=== PATIENT | male | born 1975 | race Caucasian/White ===

== ENCOUNTER → 2018-04-29 | Outpatient (CLI) | payer BC ==
[~2018-04-29] MED LIST: GADODIAMIDE 10 MMOL/20 ML ML IV ONE
== END | disposition home or self-care (01) ==
LOC: RAH 08:15
PROVIDERS: ATTEND Internal Medicine Gastroenterology
DX: R16.0 Hepatomegaly, not elsewhere classified (principal); R93.3 Abnormal findings on diagnostic imaging of other parts of digestive tract
CPT/HCPCS: 74183; A9579

== ENCOUNTER 2018-04-30 09:41 | Observation (INO) | payer BC ==
[~2018-04-30] VITALS: Ht 182.9 cm; Wt 96.2 kg
[2018-04-30] VITALS (9 sets, daily range): BP systolic 140–152; BP diastolic 76–93
[2018-04-30] MEDS ORDERED: MORPHINE SULFATE 2 MG/ML 1ML SYG IVP PRN (10:15)
[2018-04-30] MEDS ORDERED: SODIUM CHLORIDE 0.9% 1000ML 1,000 ML IV SCH (10:15)
[2018-04-30 10:41] LABS: BASOPHILS % (AUTO) 0.9 % (0.0-5.0); EOSINOPHILS % (AUTO) 2.5 % (0.0-8.0); HEMATOCRIT 41.8 % (42-54); LYMPHOCYTES % (AUTO) 20.5 % (21.0-51.0); MEAN CORPUSCULAR HEMOGLOBIN 31.9 pg (27.0-33.0); MEAN CORPUSCULAR HGB CONC 34.6 g/dL (32.0-36.0); MEAN CORPUSCULAR VOLUME 92.3 fL (79-99); MONOCYTES % (AUTO) 7.3 % (3.0-13.0); NEUTROPHILS % (AUTO) 68.8 % (40.0-77.0); NUCLEATED RED BLOOD CELLS 0.1 % (0.0-0.19); PLATELET COUNT (AUTO) 168 K/uL (130-400); RED BLOOD CELL COUNT(AUTO) 4.53 MIL/uL (4.50-6.20); RED CELL DISTRIBUTION WIDTH 13.7 % (11.0-15.5)
[2018-04-30 10:50] LABS: POTASSIUM 4.1 mmol/L (3.5-5.1)
[2018-04-30 10:54] LABS: INR 0.99 (0.85-1.15); PARTIAL THROMBOPLASTIN TIME 30.9 SEC (26.3-35.5); PROTHROMBIN TIME 10.4 SEC (9.6-11.6)
[2018-04-30 10:55] LABS: ALBUMIN 3.9 g/dL (3.5-5.0); BILIRUBIN,TOTAL 0.3 mg/dL (0.2-1.0); TOTAL PROTEIN, SERUM 7.6 g/dL (6.0-8.3)
[2018-04-30] MEDS ORDERED: FENTANYL CITRATE PF 50 MCG/1 ML 2ML VIAL ONE (14:25)
[2018-04-30] MEDS ORDERED: MIDAZOLAM HCL 1 MG/ML 2ML VIAL ONE (14:25)
[2018-04-30] MEDS ORDERED: LIDOCAINE 1%-EPI 1:100,000 20 ML VIAL IJ ONE (14:26)
== END 2018-04-30 22:15 | disposition home or self-care (01) ==
LOC: EDH 09:41 → EDHIP 09:42 → 3BH 14:27
PROVIDERS: ADMIT Internal Medicine Hematology & Oncology; ATTEND Internal Medicine Hematology & Oncology
DX: C78.7 Secondary malignant neoplasm of liver and intrahepatic bile duct (principal); C80.1 Malignant (primary) neoplasm, unspecified; E11.9 Type 2 diabetes mellitus without complications; I10 Essential (primary) hypertension; E03.9 Hypothyroidism, unspecified; E78.5 Hyperlipidemia, unspecified; Z83.3 Family history of diabetes mellitus
CPT/HCPCS: 36415; 47000; 76942; 80053; 85025; 85610; 85730; 88307; 99283; A4215; C2615; G0378 ×13; J2250; J3010; J3490; 99152

== ENCOUNTER 2019-06-29 14:04 | Day surgery (SDC) | payer BC ==
[~2019-06-29] VITALS: Ht 182.9 cm; Wt 90.6 kg
[2019-06-29 14:30] VITALS: BP 119/64
--- NOTE | 2019-06-29 16:40 | NUR ---
BLOOD BLOOD TRANSFUSION STARTED AT THIS TIME WITNESS BY Rambo HALEY RN. PT INSTRUCTED TO CALL NURSE FOR ANY S&S OF HIVES, ITCHING, SOB, PALPITATIONS OR ANYTHING DIFFERENT, PT VERBALIZED UNDERSTANDING. WILL CONTINUE TO MONITOR
--- NOTE | 2019-06-29 18:37 | NUR ---
BLOOD BLOOD TRANFUSION CONTINUES, PT TOLERATING WELL, DENIES ANY PAIN OR DISCOMFORTS , REPORT GIVEN TO Bernard JASON RN TO RESUME CARE OF PATIENT
[2019-06-29 19:20] VITALS: BP 115/70
--- NOTE | 2019-06-29 19:20 | NUR ---
POST TRANSFUSION BLOOD TRANSFUSION COMPLETE, PATIENT TOLERATED WELL. VITAL SIGNS STABLE, DENIES ANY PAIN. LUNGS CLEAR BILATERALLY.
--- NOTE | 2019-06-29 19:50 | NUR ---
PATIENT DISCHARGED FROM FACILITY VIA WHEELCHAIR, PATIENT ABLE TO DRY HIMSELF HOME
== END 2019-06-29 19:50 | disposition home or self-care (01) ==
LOC: DAH 14:04
PROVIDERS: ATTEND Internal Medicine Hematology & Oncology
DX: D64.9 Anemia, unspecified (principal); Z83.3 Family history of diabetes mellitus
CPT/HCPCS: 36415; 36430; 86850; 86900; 86901; 86922; A4215; A4216; A4221; A4223; A4606; A4663; P9016

== ENCOUNTER 2019-08-11 10:00 | Day surgery (SDC) | payer BC ==
[2019-08-11 11:30] VITALS: BP 143/75
--- NOTE | 2019-08-11 11:30 | NUR ---
PRE PROCEDURE PT LAYING IN BED COMFORTABLY. PT HAS EDEMA TO BILAT LOWER EXTREMITIES 4+. PT HAS DRIED SORES TO BILAT LEGS AND MOIST SORE TO LEFT ANKLE WRAPPED WITH DRESSING. ABDOMEN DISTENDED AND FIRM. PT REPORTED HE HAS FLUID AND WILL BE SENT FOR PARACENTESIS PER HIS MD. PT CALL LIGHT WITH IN REACH AND BED IN LOWEST POSITION. PT INSTRUCTED TO CALL FOR ASSISTANCE Addendum: 08/11/19 at 1215 by MARISA SNOW RN RN Amended: Links added.
[2019-08-11] MEDS ORDERED: SODIUM CHLORIDE 0.9% 1000ML 1,000 ML IV ONE (12:59)
[2019-08-11 13:15] VITALS: BP 125/69
--- NOTE | 2019-08-11 14:00 | NUR ---
REPORT HANDS OFF COMMUNICATION GIVEN TO MATTIE JASON RN. PT IN NO DISTRESS AND FIRST UNIT TRANSFUSING. NO S/S OF REACTION REPORTED OR NOTED.
--- NOTE | 2019-08-11 14:00 | NUR ---
HANDOFF COMMUNICATION, REPORT RECEIVED AT BEDSIDE USING SBAR BY MARISA SNOW RN. PATIENT AAOX3, DENIES ANY PAIN AT THIS TIME. RESPIRATIONS UNLABORED. PATIENT RECEIVING BLOOD TRANSFUSION AT THIS TIME. PATIENT WITH PITTING EDEMA TO BLE'S.
--- NOTE | 2019-08-11 14:20 | NUR ---
RE: PATIENT TEMPERATURE RISING AFTER BLOOD TRANSFUSION STARTED PATIENT ASYMPTOMATIC, STATES HE FEELS FINE AND DOES NOT FEEL ANY DIFFERENT FROM WHEN THE TRANSFUSION STARTED. CALLED DR ONEAL AND RECEIVED ORDERS FOR TYLENOL 650MG PO X 1 DOSE. PATIENT REFUSES TO TAKE TYLENOL DUE TO LIVER CANCER. WILL CONTINUE TO MONITOR PATIENT FOR SYMPTOMS OF TRANSFUSION REACTION.
[2019-08-11] MEDS ORDERED: ACETAMINOPHEN 325 MG TAB ONE (14:22)
--- NOTE | 2019-08-11 17:10 | NUR ---
DISCHARGE INSTRUCTIONS PROVIDED TO PATIENT, HANDOUTS PROVIDED ON TRANSFUSION REACTION AND EXPLAINED TO PATIENT. ALL QUESTIONS/CONCERNS ADDRESSED.
--- NOTE | 2019-08-11 17:35 | NUR ---
PATIENT DISCHARGED VIA WHEELCHAIR AND ABLE TO DRIVE HIMSELF HOME
== END 2019-08-11 17:35 | disposition home or self-care (01) ==
LOC: DAH 10:00
PROVIDERS: ATTEND Internal Medicine Hematology & Oncology
DX: D64.9 Anemia, unspecified (principal); E78.5 Hyperlipidemia, unspecified; E03.9 Hypothyroidism, unspecified; Z79.899 Other long term (current) drug therapy; Z83.3 Family history of diabetes mellitus
CPT/HCPCS: 36415; 36430; 86850; 86900; 86901; 86922; J7030; P9016

== ENCOUNTER 2019-08-12 09:40 | Day surgery (SDC) | payer BC ==
--- NOTE | 2019-08-12 09:45 | NUR ---
pre procedure pt arrived ambulatory in no distress. pt very pale and here for blood transfusion. pt made comfortable in bed, call light with in reach, bed in lowest position. and pt instructed to call for assistance. pt voiced understanding. pt has dried sores to bilat lower legs and dressing to left ankle clean and dry.
[2019-08-12 10:00] VITALS: BP 147/76
[2019-08-12 10:28] LABS: HEMATOCRIT 18.7 % (42-54)
--- NOTE | 2019-08-12 10:28 | NUR ---
criticalgus received call from aimee from lab on hemoglobin of 5.8 and hct 18.7. pt here for treatment md aware. will proceed with blood transfusion
[2019-08-12] MEDS ORDERED: SODIUM CHLORIDE 0.9% 1000ML 1,000 ML IV ONE (10:35)
--- NOTE | 2019-08-12 11:55 | NUR ---
blood transfusion verified unit of blood with alejandrina suarez rn and pt.
--- NOTE | 2019-08-12 13:36 | NUR ---
BLOOD TRANSFUSION UNIT OF BLOOD INFUSING WELL. NO S/S OF REACTION NOTED. BLOOD AT 120ML/HR VIA PUMP
--- NOTE | 2019-08-12 14:00 | NUR ---
diet lunch tray served. pt in no distress. unit of blood still being transfused. no s/s of reaction noted
[2019-08-12 14:06] VITALS: BP 121/74
--- NOTE | 2019-08-12 14:17 | NUR ---
report report given to alejandrina suarez rn for continuation of care
[2019-08-12 15:24] VITALS: BP 122/68
== END 2019-08-12 15:33 | disposition home or self-care (01) ==
LOC: DAH 09:40
PROVIDERS: ATTEND Internal Medicine Hematology & Oncology
DX: D64.9 Anemia, unspecified (principal); Z83.3 Family history of diabetes mellitus
CPT/HCPCS: 36415; 36430; 85014; 85018; 86850; 86900; 86901; 86922; A4215; A4221; A4222; A4223; A4663; J7030; P9016

== ENCOUNTER → 2019-08-18 | Outpatient (CLI) | payer BC ==
[2019-08-18 10:51] LABS: INR 1.27 (0.85-1.15); PARTIAL THROMBOPLASTIN TIME 33.9 SEC (26.3-35.5); PROTHROMBIN TIME 13.6 SEC (9.6-11.6)
--- NOTE | 2019-08-18 13:45 | NUR ---
US GUIDED PARACENTESIS ORDERED. NOT DONE US OF ALL 4 QUADRANTS OF THE ABDOMEN PERFORMED BY FABIOLA OCHOA. DR. REGALADO REVIEWED THE IMAGES AND CONFIRMED, NOT ENOUGH FLUID TO SAFELY PERFORM PROCEDURE. DR. REGALADO INFORMED PT OF RESULTS. PT DISCHARGED HOME AMBULATORY, STABLE, AAO X 3, NO C/O PAIN.
== END | disposition home or self-care (01) ==
LOC: RAH 09:44
PROVIDERS: ATTEND Internal Medicine Hematology & Oncology
DX: C49.A9 Gastrointestinal stromal tumor of other sites (principal); R16.0 Hepatomegaly, not elsewhere classified
CPT/HCPCS: 36415; 76705; 85610; 85730

== ENCOUNTER → 2019-08-25 16:32 | Day surgery (SDC) | payer BC, OTHER ==
--- NOTE | 2019-08-25 11:10 | NUR ---
received report from Bharti Long RN, no concerns at this time
[2019-08-25 12:41] VITALS: BP 123/70
[2019-08-25 16:00] VITALS: BP 131/74
== END | disposition home or self-care (01) ==
LOC: DAH 16:32
PROVIDERS: ATTEND Internal Medicine Hematology & Oncology
DX: D64.9 Anemia, unspecified (principal); K92.2 Gastrointestinal hemorrhage, unspecified; E78.5 Hyperlipidemia, unspecified; E03.9 Hypothyroidism, unspecified; Z83.3 Family history of diabetes mellitus; Z80.1 Family history of malignant neoplasm of trachea, bronchus and lung
CPT/HCPCS: 36415; 36430; 86850; 86900; 86901; 86922; A4215; A4216; A4221; A4223; A4606; A4663; P9016

== ENCOUNTER 2019-08-26 10:08 | Day surgery (SDC) | payer OTHER ==
[2019-08-26 10:10] VITALS: BP 139/71
[2019-08-26 10:44] LABS: EOSINOPHILS % (AUTO) 2.1 % (0.0-8.0); MEAN CORPUSCULAR HEMOGLOBIN 38.5 pg (27.0-33.0); MEAN CORPUSCULAR HGB CONC 35.3 g/dL (32.0-36.0); MEAN CORPUSCULAR VOLUME 109.1 fL (79-99); MONOCYTES % (AUTO) 11.3 % (3.0-13.0); NEUTROPHILS % (AUTO) 66.6 % (40.0-77.0); NUCLEATED RED BLOOD CELLS 1.7 % (0.0-0.19); PLATELET COUNT (AUTO) 267 K/uL (130-400); RED BLOOD CELL COUNT(AUTO) 1.87 MIL/uL (4.50-6.20); WHITE BLOOD COUNT (AUTO) 2.4 K/uL (4.8-10.8)
[2019-08-26 10:57] LABS: HEMATOCRIT 20.4 % (42-54)
[2019-08-26 11:40] LABS: EOSINOPHILS % (MANUAL) 3 % (1-6); LYMPHOCYTES % (MANUAL) 20 % (22-44); MAN.DIFF COMMENT-IMPRESSION MANUAL DIFFERENTIAL; MONOCYTES % (MANUAL) 10 % (2-9); PLATELET MORPHOLOGY COMMENT ADEQUATE; SEGMENTED NEUTROPHILS % 67 % (40-70)
--- NOTE | 2019-08-26 15:05 | NUR ---
PT HAD NO COMPLICATION WITH BLOOD TRANSFUSION OR REACTIONS. PT LEFT VIA WHEELCHAIR IN PVT CAR.
== END 2019-08-26 15:45 | disposition home or self-care (01) ==
LOC: DAH 10:08
PROVIDERS: ATTEND Internal Medicine Hematology & Oncology
DX: R58 Hemorrhage, not elsewhere classified (principal); E03.9 Hypothyroidism, unspecified; E78.5 Hyperlipidemia, unspecified
CPT/HCPCS: 36415; 36430; 85025; 86850; 86900; 86901; 86922; A4215; A4216; A4221; A4222; A4223 ×3; A4606; A4663; P9016

== ENCOUNTER 2019-12-05 09:48 | Inpatient (IN) | payer OTHER ==
[~2019-12-05] VITALS: Ht 167.6 cm; Wt 63.5 kg
[2019-12-05] MEDS ORDERED: ALBUMIN (HUMAN) 25% 50 ML IV ONE (10:36)
[2019-12-05] MEDS ORDERED: CEFTRIAXONE SODIUM 2 GM VIAL ONE (11:02)
[2019-12-05] MEDS ORDERED: LACTULOSE 20 GM/30 ML UDCUP ONE ×3 (11:31→23:11)
[2019-12-05] MEDS ORDERED: SODIUM CHLORIDE 0.9% 1000ML 1,000 ML IV SCH (15:45)
[2019-12-05] MEDS ORDERED: ONDANSETRON HCL 4 MG/2 ML VIAL IVP PRN (16:00)
[2019-12-05] MEDS ORDERED: LACTULOSE 20 GM/30 ML UDCUP PO SCH (17:00)
[2019-12-06] MEDS ORDERED: LACTULOSE 20 GM/30 ML UDCUP ONE ×2 (04:43→11:02)
--- NOTE | 2019-12-06 16:00 | NUR ---
CM NOTES CASE MANAGEMENT DID NOT HAVE OPPORTUNITY TO CALL/CONTACT PATIENT PRIOR TO DISCHARGE- SPOKE TO PATIENT BRIANNA ANTHONY SHORTLY AFTER LEAVING HOSPITAL- THEY ARE STAYING AT A HOTEL STATES SHE CAME TO HELP HIM GET READY TO MOVE AND IS TAKING HIM BACK TO [place] WITH HER . STATS PATIENT DOES NOT WANT HOSPICE. STATES SHE DOES NOT KNOW HOW SHE IS GOING TO GET HIM THERE, ' BUT HIS LEGS ARE GREAT, NO MORE SWELLING AND HE IS FOLLOWING COMMANDS' STATES FEEL SAFE TO TRAVEL WITH PATIENT AND HE LOOKS MUCH IMPROVED TO HER.
== END 2019-12-06 13:21 | disposition home or self-care (01) | DRG 442 ==
LOC: EDH 09:48 → EDHIP 15:37
PROVIDERS: ADMIT Internal Medicine Hematology & Oncology; ATTEND Internal Medicine Hematology & Oncology
DX: K72.90 Hepatic failure, unspecified without coma (principal); C79.9 Secondary malignant neoplasm of unspecified site; C49.A0 Gastrointestinal stromal tumor, unspecified site; R18.8 Other ascites; R64 Cachexia; E03.9 Hypothyroidism, unspecified; Z20.828 Contact with and (suspected) exposure to other viral communicable diseases; E78.5 Hyperlipidemia, unspecified; Z83.3 Family history of diabetes mellitus; Z80.1 Family history of malignant neoplasm of trachea, bronchus and lung; Z68.22 Body mass index [BMI] 22.0-22.9, adult